=== PATIENT | male | born 1945 | race Caucasian/White ===

== ENCOUNTER → 2018-04-23 | Outpatient (CLI) | payer OTHER | LOC: BMCIMAGING 14:14 | PROVIDERS: ATTEND Family Medicine | DX: I82.592 Chronic embolism and thrombosis of other specified deep vein of left lower extremity (principal) ==

== ENCOUNTER 2018-08-30 10:47 | Emergency (ER) | payer OTHER ==
[2018-08-30 11:28] LABS: PLATELET COUNT 302 10^3/uL (150-400)
--- NOTE | 2018-08-30 11:31 | EDPHY ---
H & P Time Seen by Provider: 08/30/18 11:05 HPI/ROS: Chief complaint. Dizzy, jaw tightness HPI. 73-year-old male presents emergency department with jaw tightness slight dizziness. He was knocking snow off his trees this morning in the began to have some dizziness and felt that if it got worse she could pass out. He has had off and on headache for 1 month. He has had left jaw tightness and left upper chest discomfort previously as well as today. Also today he felt his heart was pounding. However his jaw tightness and chest tightness not worse with exertion previously but maybe associated today. No fever cough. No shortness of breath. ROS 10 systems were reviewed and negative with the exception of the elements mentioned in the history of present illness Past Medical/Surgical History: COPD, spine fusion, inguinal repair No family history of coronary artery disease Social History: , nonsmoker, no alcohol Smoking Status: Former smoker Physical Exam: General Appearance: Alert well-developed male mild distress. Vital signs are stable Eyes: Pupils equal and round no pallor or injection. ENT, Mouth: Mucous membranes are moist. Respiratory: There are no retractions, lungs are clear to auscultation. Cardiovascular: Regular rate and rhythm. Gastrointestinal: Abdomen is soft and nontender, no masses, bowel sounds normal. Neurological: Awake and alert, sensory and motor exams grossly normal. Skin: Warm and dry, no rashes. Musculoskeletal: Neck is supple nontender. Extremities symmetrical, full range of motion. Psychiatric: Patient is oriented X 3, there is no agitation. Constitutional: Initial Vital Signs Temperature (C) 36.9 C 08/30/18 10:52 Heart Rate 66 08/30/18 10:52 Respiratory Rate 16 08/30/18 10:52 Blood Pressure 132/70 H 08/30/18 10:52 O2 Sat (%) 96 08/30/18 10:52 O2 Delivery Mode Room Air Allergies/Adverse Reactions: tetracycline Allergy (Verified 08/30/18 10:51) Home Medications: Medication Instructions Recorded Acetaminophen 08/30/18 Ambien 08/30/18 Aspirin 08/30/18 Dulcolax 08/30/18 Fish Oil 1,000 mg Softgel 08/30/18 Flonase Allergy Relief 08/30/18 Ibuprofen 08/30/18 Ipratropium 0.03% Nasal 08/30/18 Iron 08/30/18 Klonopin 08/30/18 Lansoprazole 08/30/18 Meloxicam 08/30/18 Multivitamin 08/30/18 Ranitidine HCl 08/30/18 Sildenafil Citrate 08/30/18 Tagamet Hb 08/30/18 Tamsulosin HCl 08/30/18 Vitamin B12 08/30/18 Vitamin C 08/30/18 Medical Decision Making - Diagnostics EKG Interpretation: EKG interpreted by me normal sinus rhythm with normal interval. Borderline left axis deviation. QRS is normal. There is no significant ST elevation or depression. No arrhythmia. The rate is 65 Imaging Results: Imaging Impressions Chest X-Ray 08/30/18 11:44 Impression: Stable negative portable chest. One-view chest x-ray interpreted by me is normal Procedures: IV normal saline, monitor ED Course/Re-evaluation: Re-evaluation at 1:10 p.m.. Patient and I discussed imaging lab EKG findings. We discussed treatment plan including recommendation for admission. He continues to have some left upper chest discomfort and jaw pain. Patient would like to be treated as an outpatient. We discussed risks and benefits of this plan. He expresses understanding and agreement. He is encouraged to return at any point for worsening symptoms including lightheadedness, nearly passing out, worsening chest or neck discomfort. He expresses understanding and agreement Differential Diagnosis: I've considered acute coronary syndrome, pneumonia, pneumothorax. - Data Points Laboratory Results: Laboratory Results 08/30/18 11:10 08/30/18 11:10 08/30/18 08/30/18 08/30/18 11:16 11:10 11:10 WBC 6.32 10^3/uL 10^3/uL (3.80-9.50) RBC 4.92 10^6/uL 10^6/uL (4.40-6.38) Hgb 14.5 g/dL g/dL (13.7-17.5) Hct 43.9 % % (40.0-51.0) MCV 89.2 fL fL (81.5-99.8) MCH 29.5 pg pg (27.9-34.1) MCHC 33.0 g/dL g/dL (32.4-36.7) RDW 13.3 % % (11.5-15.2) Plt Count 302 10^3/uL 10^3/uL (150-400) MPV 10.2 fL fL (8.7-11.7) Neut % (Auto) 72.1 % % (39.3-74.2) Lymph % (Auto) 17.1 % % (15.0-45.0) [place] % (Auto) 8.1 % % (4.5-13.0) Eos % (Auto) 1.7 % % (0.6-7.6) Baso % (Auto) 0.8 % % (0.3-1.7) Nucleat RBC Rel Count 0.0 % % (0.0-0.2) Absolute Neuts (auto) 4.56 10^3/uL 10^3/uL (1.70-6.50) Absolute Lymphs (auto) 1.08 10^3/uL 10^3/uL (1.00-3.00) Absolute Monos (auto) 0.51 10^3/uL 10^3/uL (0.30-0.80) Absolute Eos (auto) 0.11 10^3/uL 10^3/uL (0.03-0.40) Absolute Basos (auto) 0.05 10^3/uL 10^3/uL (0.02-0.10) Absolute Nucleated RBC 0.00 10^3/uL 10^3/uL (0-0.01) Immature Gran % 0.2 % % (0.0-1.1) Immature Gran # 0.01 10^3/uL 10^3/uL (0.00-0.10) Sodium 139 mEq/L mEq/L (135-145) Potassium 4.4 mEq/L mEq/L (3.5-5.2) Chloride 102 mEq/L mEq/L (97-110) Carbon Dioxide 28 mEq/l mEq/l (22-31) Anion Gap 9 mEq/L mEq/L (6-14) BUN 19 mg/dL mg/dL (7-23) Creatinine 0.9 mg/dL mg/dL (0.7-1.3) Estimated GFR > 60 Glucose 89 mg/dL mg/dL (70-100) Calcium 9.4 mg/dL mg/dL (8.5-10.4) POC Troponin I 0.00 ng/mL ng/mL (0.00-0.08) Point of Care Test Results: Chemistry 08/30/18 11:16 POC Troponin I 0.00 ng/mL ng/mL (0.00-0.08) Departure - Departure Disposition: Home, Routine, Self-Care Clinical Impression: Chest pain Qualifiers: Chest pain type: unspecified Qualified Code(s): R07.9 - Chest pain, unspecified Condition: Good Instructions: Chest Pain (ED) Additional Instructions: Easy activity next couple days until see cardiology Return for further chest discomfort, trouble breathing, sense of passing out. Call Cardiology today to arrange further evaluation in the next 1-3 days. Referrals: Rodrigo Mack MD [Primary Care Provider] - As per Instructions Manolo Infante MD [Medical Doctor] - 2-3 days without fail
--- NOTE | 2018-08-30 13:07 | CPEKG ---
Test Reason : OPEN Blood Pressure : / mmHG Vent. Rate : 065 BPM Atrial Rate : 065 BPM P-R Int : 167 ms QRS Dur : 087 ms QT Int : 397 ms P-R-T Axes : 049 -25 028 degrees QTc Int : 413 ms Sinus rhythm Borderline left axis deviation Abnormal R-wave progression, early transition Confirmed by Carrie Loyd ([id number]) on 08/30/2018 1:06:57 PM Referred By: CARRIE LOYD Confirmed By:Carrie Loyd
[2018-08-30 13:28] VITALS: BP 109/78
== END 2018-08-30 13:28 | disposition home or self-care (01) ==
DX: R07.9 Chest pain, unspecified (principal); R68.84 Jaw pain
CPT/HCPCS: 84484-ER

== ENCOUNTER 2018-09-07 17:11 | Observation (INO) | payer OTHER ==
[2018-09-07] MEDS ORDERED: ASPIRIN 81 MG CHEWABLE TAB PO ONE (17:22)
--- NOTE | 2018-09-07 17:25 | EDPHY ---
H & P Time Seen by Provider: 09/07/18 17:20 - Medical/Surgical History Hx Asthma: No Hx Chronic Respiratory Disease: No Hx Diabetes: No Hx Cardiac Disease: No Hx Renal Disease: No Hx Cirrhosis: No Hx Alcoholism: No Hx HIV/AIDS: No Hx Splenectomy or Spleen Trauma: No Other PMH: COPD, L4-5 fusion, L3-S1 fusion, RENA inguinal repair, - Social History Smoking Status: Former smoker Constitutional: Initial Vital Signs Temperature (C) 36.6 C 09/07/18 17:23 Heart Rate 66 09/07/18 17:23 Respiratory Rate 18 09/07/18 17:23 Blood Pressure 135/68 H 09/07/18 17:23 O2 Sat (%) 94 09/07/18 17:23 O2 Delivery Mode Room Air Allergies/Adverse Reactions: tetracycline Allergy (Verified 09/07/18 17:23) Home Medications: Medication Instructions Recorded Acetaminophen 08/30/18 Ambien 08/30/18 Aspirin 08/30/18 Dulcolax 08/30/18 Fish Oil 1,000 mg Softgel 08/30/18 Flonase Allergy Relief 08/30/18 Ibuprofen 08/30/18 Ipratropium 0.03% Nasal 08/30/18 Iron 08/30/18 Klonopin 08/30/18 Lansoprazole 08/30/18 Meloxicam 08/30/18 Multivitamin 08/30/18 Ranitidine HCl 08/30/18 Sildenafil Citrate 08/30/18 Tagamet Hb 08/30/18 Tamsulosin HCl 08/30/18 Vitamin B12 08/30/18 Vitamin C 08/30/18 Medical Decision Making ED Course/Re-evaluation: CHIEF COMPLAINT: Abnormal stress test, chest pain HISTORY OF PRESENT ILLNESS: The patient is a 73 y/o male with a history of COPD arriving at the request of a vault service mechanic after he failed a cardiac stress test today. The patient had a treadmill stress test at 14:30, 3 hours ago, at [facility]. This revealed ST depression while at a high work load. After the stress test he developed left-sided neck tightness and minor chest pain. Within the last hour, the neck tightness is now radiating up his cheek. Due to these symptoms and the stress test he was advised to present to the emergency department. No fever, headache, body aches, lightheadedness, heart palpitations, shortness of breath, cough, abdominal pain, urinary or bowel complaints, numbness, paresthesias. In 2013 he had a calcium score of 0 and was also diagnosed with two leaky cardiac valves. REVIEW OF SYSTEMS: A 10 point review of systems was performed and is negative with the exception of the elements mentioned in the history of present illness. PHYSICAL EXAM: HR, BP, O2 Sat, RR. Temp noted General Appearance: Alert, well hydrated, appropriate, and non-toxic appearing. Head: Atraumatic without scalp tenderness or obvious injury Eyes: Pupils equal, round, reactive to light and accommodation, EOMI, no trauma , no injection. Ears: Clear bilaterally, no perforation, normal landmarks Nose: Atraumatic, no rhinorrhea, clear. Throat: There is no erythema or exudates, no lesions, normal tonsils, mucus membranes moist. Neck: Supple, 2+ carotid upstroke, nontender, no lymphadenopathy. Respiratory: No retractions, no distress, no wheezes, and no accessory muscle use. Lungs are clear to auscultation bilaterally. Cardiovascular: Regular rate and rhythm, no murmurs, rubs, or gallops. Bilateral carotid, radial, dorsalis pedis, and posterior tibial pulses intact. Good capillary refill all extremities. Gastrointestinal: Abdomen is soft, nontender, non-distended, no masses, no rebound, no guarding, no peritoneal signs. Musculoskeletal: Normal active ROM of all extremities, atraumatic. Neurological: Alert, appropriate, and interactive. The patient has normal DTRs and non-focal cranial nerves, motor, sensory, and cerebellar exam. Skin: No rashes, good turgor, no nodules on palpation. Past medical history: COPD, leaky heart valves Past surgical history: L4-5 fusion, L3-S1 fusion,bilateral inguinal repair Family history: Denies Social history: at bedside, lives in [place], retired DIAGNOSTICS/PROCEDURES/CRITICAL CARE TIME: EKG: The 12 lead EKG was interpreted by myself as sinus rhythm with a rate of 66 , borderline left axis deviation. See hard copy and/or "tracemaster" electronic copy for interpretation. CT Coronary Angiography: Unable to be performed today. DIFFERENTIAL DIAGNOSIS: The differential diagnosis for the patient's chest pain included but was not limited to myocardial ischemia, pulmonary embolus, chest wall pain, pleural inflammation, and pulmonary infectious causes. MEDICAL DECISION MAKING: The patient is a 73 y/o male with a history of COPD arriving at the request of a vault service mechanic after he failed a cardiac stress test today. The patient had a treadmill stress test at 14:30, 3 hours ago, at [facility]. This revealed ST depression at a high work load. After the stress test he developed left-sided neck tightness (now radiating to his cheek) and minor chest pain. He has a normal physical exam. 324mg PO Aspirin administered. I will page the vault service mechanic to consult on this patient. 1727: I reviewed patient's EKG as sinus rhythm with a rate of 66, borderline left axis deviation. His POC troponin is 0.00 1800: I consulted with Dr. Rivas, vault service mechanic, regarding this patient. CT coronary angiography ordered; 5mg IV Lopressor administered. 1810: Reassessed patient and discussed plan for CT coronary angiography, which he is comfortable with. 1814: I spoke with the r and d lab technician who states he cannot perform the CT coronary angiography. The patient will need to be admitted to have the CT performed tomorrow. 1815: I consulted with Dr. Luque, radiologist, regarding this patient. She accepts admission of this patient. 1818: Reassessed patient and discussed plan for admission which he is comfortable with. - Data Points Laboratory Results: Laboratory Results 09/07/18 17:30 09/07/18 17:30 09/07/18 09/07/18 09/07/18 17:37 17:30 17:30 WBC 7.74 10^3/uL 10^3/uL (3.80-9.50) RBC 4.80 10^6/uL 10^6/uL (4.40-6.38) Hgb 14.2 g/dL g/dL (13.7-17.5) Hct 42.6 % % (40.0-51.0) MCV 88.8 fL fL (81.5-99.8) MCH 29.6 pg pg (27.9-34.1) MCHC 33.3 g/dL g/dL (32.4-36.7) RDW 13.2 % % (11.5-15.2) Plt Count 326 10^3/uL 10^3/uL (150-400) MPV 9.9 fL fL (8.7-11.7) Neut % (Auto) 78.9 % H % (39.3-74.2) Lymph % (Auto) 12.7 % L % (15.0-45.0) [place] % (Auto) 6.5 % % (4.5-13.0) Eos % (Auto) 1.2 % % (0.6-7.6) Baso % (Auto) 0.4 % % (0.3-1.7) Nucleat RBC Rel Count 0.0 % % (0.0-0.2) Absolute Neuts (auto) 6.12 10^3/uL 10^3/uL (1.70-6.50) Absolute Lymphs (auto) 0.98 10^3/uL L 10^3/uL (1.00-3.00) Absolute Monos (auto) 0.50 10^3/uL 10^3/uL (0.30-0.80) Absolute Eos (auto) 0.09 10^3/uL 10^3/uL (0.03-0.40) Absolute Basos (auto) 0.03 10^3/uL 10^3/uL (0.02-0.10) Absolute Nucleated RBC 0.00 10^3/uL 10^3/uL (0-0.01) Immature Gran % 0.3 % % (0.0-1.1) Immature Gran # 0.02 10^3/uL 10^3/uL (0.00-0.10) Sodium 136 mEq/L mEq/L (135-145) Potassium 4.0 mEq/L mEq/L (3.5-5.2) Chloride 100 mEq/L mEq/L (97-110) Carbon Dioxide 27 mEq/l mEq/l (22-31) Anion Gap 9 mEq/L mEq/L (6-14) BUN 18 mg/dL mg/dL (7-23) Creatinine 0.9 mg/dL mg/dL (0.7-1.3) Estimated GFR > 60 Glucose 113 mg/dL H mg/dL (70-100) Calcium 9.4 mg/dL mg/dL (8.5-10.4) POC Troponin I 0.00 ng/mL ng/mL (0.00-0.08) NT-Pro-B Natriuret Pep 48 pg/mL pg/mL (0-125) Medications Given: Discontinued Medications Aspirin (Aspirin) 324 mg PO EDNOW ONE Stop: 09/07/18 17:23 Last Admin: 09/07/18 17:35 Dose: 324 mg Point of Care Test Results: Chemistry 09/07/18 17:37 POC Troponin I 0.00 ng/mL ng/mL (0.00-0.08) Departure - Departure Disposition: [facility] Inpatient Acute Clinical Impression: Abnormal stress test Chest pain Qualifiers: Chest pain type: other chest pain Qualified Code(s): R07.89 - Other chest pain ; R07.8 - Other chest pain Condition: Fair Referrals: Rodrigo Mack MD [Primary Care Provider] - As per Instructions Report Scribed for: Christian Farias Report Scribed by: Ester Dooley Date of Report: 09/07/18 Time of Report: 17:25
[2018-09-07 17:43] LABS: PLATELET COUNT 326 10^3/uL (150-400)
[2018-09-07] MEDS ORDERED: METOPROLOL TARTRATE 5 MG/5 ML INJ IVP ONE (18:07)
[2018-09-07] MEDS ORDERED: NITROGLYCERIN 0.4 MG BTL SL PRN (18:26)
[2018-09-07] MEDS ORDERED: ONDANSETRON DISINTEGRATING 4 MG TAB PO PRN (18:26)
[2018-09-07] MEDS ORDERED: ONDANSETRON 4 MG/2 ML VIAL IVP PRN (18:26)
[2018-09-07] MEDS ORDERED: ACETAMINOPHEN 325 MG TAB PO PRN (18:26)
--- NOTE | 2018-09-07 19:05 | PDGENHP ---
History and Physical - Chief Complaint jaw/face pain following stress test - History of Present Illness 73 yo M with PMH of GERD, BPH and RLS for which he requires chronic benzo's presenting with complaints of jaw, neck and face pain. He was seen in this ER on 08/30 for complaints of left jaw pain and dizziness as well as brief chest pain that were associated with exertion. He had a negative work up in the ER and was discharged with a plan for an outpatient stress test given that he has low risk factors, including a very low calcium score recently. He was scheduled by [facility] for next week, but his symptoms were continuing and therefore he was seen at [facility] where he was able to have the treadmill test performed today. The ECG portion of the stress test was reported as negative, however towards the end of the test patient began to experience jaw, neck and left arm pain that then progressed to involve the entire side of his left face. The jaw and face pain continue while I am speaking with him. He informed [facility] of the symptoms that occurred during his stress and he was recommended to come to the ER and be admitted for further evaluation. He notes he is fairly active and prior to these last episodes has not had pain associated with exertion, though he has at times had dizziness with exertion and at times severe enough that he has had to stop what he was doing. He also reports having recurrent headache particularly above and beside his left eye intermittently for the last several weeks and increased fatigue and grogginess for the last several weeks. He denies any increased stress or anxiety. History Information - Allergies/Home Medication List Allergies/Adverse Reactions: tetracycline Allergy (Verified 09/07/18 17:23) Home Medications: Cyanocobalamin [Vitamin B12 (*)] 1,000 mcg PO DAILY 09/07/18 [Last Taken ] Fluticasone Nasal [Flonase Nasal [place] (RX)] 1 - 2 sprays NASAL DAILY 09/07/18 [ Last Taken 09/07/18] Lansoprazole 30 mg PO BID 09/07/18 [Last Taken 09/07/18 08:00] Meloxicam 15 mg PO DAILY PRN 09/07/18 [Last Taken 09/07/18] Multivitamins [Multivitamin (*)] 1 each PO DAILY 09/07/18 [Last Taken 09/07/18] Tamsulosin HCl [Flomax 0.4 MG (*)] 0.8 mg PO HS 09/07/18 [Last Taken 09/06/18] clonazePAM [Klonopin (*)] 0.25 mg PO HS 09/07/18 [Last Taken 09/06/18] I have personally reviewed and updated: family history, medical history, social history, surgical history - Past Medical History arthritis, GERD Additional medical history: BPH. RLS and chronic benzo use - Surgical History Reports: spinal surgery (x 2) - Family History Additional family history: father w/hx of TIA. MGF with [place] in 60s. Longevity on both sides - Social History Smoking Status: Former smoker (quit at age 36, never heavy smoker) Alcohol Use: Rarely Drug Use: None Additional social history: , retired, active Review of Systems Review of Systems: Physical Exam Physical Exam: Temp Pulse Resp BP Pulse Ox 36.6 C 63 14 108/63 96 09/07/18 17:23 09/07/18 18:07 09/07/18 18:07 09/07/18 18:07 09/07/18 18:07 Constitutional: no apparent distress, appears nourished Eyes: PERRL, anicteric sclera Ears, Nose, Mouth, Throat: moist mucous membranes, hearing normal Cardiovascular: regular rate and rhythym, no murmur, rub, or gallop, No edema Respiratory: no respiratory distress, no rales or rhonchi, clear to auscultation Gastrointestinal: normoactive bowel sounds, soft, non-tender abdomen Genitourinary: no bladder fullness Skin: warm, normal color Musculoskeletal: full muscle strength Neurologic: AAOx3 Psychiatric: interacting appropriately, not anxious, not encephalopathic Lab Data & Imaging Review 09/07/18 17:30 09/07/18 17:30 WBC 7.74 10^3/uL (3.80-9.50) 09/07/18 17:30 RBC 4.80 10^6/uL (4.40-6.38) 09/07/18 17:30 Hgb 14.2 g/dL (13.7-17.5) 09/07/18 17:30 Hct 42.6 % (40.0-51.0) 09/07/18 17:30 MCV 88.8 fL (81.5-99.8) 09/07/18 17:30 MCH 29.6 pg (27.9-34.1) 09/07/18 17: MCHC 33.3 g/dL (32.4-36.7) 09/07/18 17: RDW 13.2 % (11.5-15.2) 09/07/18 17: Plt Count 326 10^3/uL (150-400) 09/07/18 17: MPV 9.9 fL (8.7-11.7) 09/07/18 17: Neut % (Auto) 78.9 % (39.3-74.2) H 09/07/18 17: Lymph % (Auto) 12.7 % (15.0-45.0) L 09/07/18: [place] % (Auto) 6.5 % (4.5-13.0) 09/07/18: Eos % (Auto) 1.2 % (0.6-7.6) 09/07/18: Baso % (Auto) 0.4 % (0.3-1.7) 09/07/18: Nucleat RBC Rel Count 0.0 % (0.0-0.2) 09/07/18: Absolute Neuts (auto) 6.12 10^3/uL (1.70-6.50) 09/07/18 17:30 Absolute Lymphs (auto) 0.98 10^3/uL (1.00-3.00) L 09/07/18: Absolute Monos (auto) 0.50 10^3/uL (0.30-0.80) 09/07/18 17:30 Absolute Eos (auto) 0.09 10^3/uL (0.03-0.40) 09/07/18: Absolute Basos (auto) 0.03 10^3/uL (0.02-0.10) 09/07/18: Absolute Nucleated RBC 0.00 10^3/uL (0-0.01) 09/07/18: Immature Gran % 0.3 % (0.0-1.1) 09/07/18: Immature Gran # 0.02 10^3/uL (0.00-0.10) 05/17/19 17:30 Sodium 136 mEq/L (135-145) 09/07/18 17:30 Potassium 4.0 mEq/L (3.5-5.2) 09/07/18 17:30 Chloride 100 mEq/L (97-110) 09/07/18 17:30 Carbon Dioxide 27 mEq/l (22-31) 09/07/18 17:30 Anion Gap 9 mEq/L (6-14) 09/07/18:30 BUN 18 mg/dL (7-23) 09/07/18 17:30 Creatinine 0.9 mg/dL (0.7-1.3) 09/07/18 17:30 Estimated GFR > 60 09/07/18:30 Glucose 113 mg/dL (70-100) H 09/07/18 17:30 Calcium 9.4 mg/dL (8.5-10.4) 09/07/18 17:30 POC Troponin I 0.00 ng/mL (0.00-0.08) 09/07/18 17:37 NT-Pro-B Natriuret Pep 48 pg/mL (0-125) 09/07/18 17:30 Visualized and Interpreted Chest x-ray results: Yes Chest X-Ray results: normal Visualized and Interpreted EKG results: Yes EKG Interpretation: Positive for: normal sinsus rhythm EKG additional interpertation: abnormal R wave progression Assessment & Plan Assessment: Abnormal stress test (Acute) Chest pain (Acute) 73 yo M with PMH of GERD, BPH and c/o exertional jaw/neck pain and exertional dizziness for the last several weeks presenting following worsening left sided jaw/neck/face pain following exercise stress test today # exertional jaw/neck/arm pain: atypical complaints but persistent now for several weeks, given sxs related to his ETT this was felt to be a failed stress test and cardiology recommended further evaluation in ER. Patient is relatively low risk other than age and male sex, with a reassuring calcium score recently. Plan to monitor on telemetry, serial trops and ecg overnight, nuc med stress test in am so long as no troponin elevation or ecg changes overnight. Patient and his amenable to that plan. Will ask cardiology to evaluate in am as well. # dizziness/near syncope: patient reporting that this has been present for several weeks and largely exertional as well, plan for now as above # face pain/headache: given pain that patient describes as located near his left eye with associated headache and fatigue, will check ESR, if elevated consider further w/u for temporal arteritis # GERD: possibly related to his presenting complaints but does not seem typical for GI type pain, continue lansoprazole # RLS: for which he takes chronic clonazepam, will continue # observation status Patient new to my care. Old records reviewed and summarized as above. Care plan reviewed with ER doctor and further hx obtained from patients as above.
--- NOTE | 2018-09-07 19:30 | CPEKG ---
Test Reason : OPEN Blood Pressure : / mmHG Vent. Rate : 066 BPM Atrial Rate : 066 BPM P-R Int : 162 ms QRS Dur : 096 ms QT Int : 427 ms P-R-T Axes : 054 -25 048 degrees QTc Int : 448 ms Sinus rhythm Borderline left axis deviation Abnormal R-wave progression, early transition Confirmed by Christian Farias ([id number]) on 09/07/2018 7:30:11 PM Referred By: Christian Farias Confirmed By:Christian Farias
[2018-09-07] MEDS ORDERED: clonazePAM 0.5 MG TAB PO SCH ×2 (21:00)
[2018-09-07] MEDS ORDERED: TAMSULOSIN HCL 0.4 MG CAP PO SCH ×2 (21:00)
[2018-09-07] MEDS: LANSOPRAZOLE 30MG CAP PO SCH (21:19)
[2018-09-08] MEDS ORDERED: MULTIVITAMINS 1 EACH TAB PO SCH (09:00)
[2018-09-08] MEDS ORDERED: FLUTICASONE NASAL 120 SPRAYS/16 GM MDI EACHNARE SCH (09:00)
[2018-09-08] MEDS ORDERED: CYANO/VITAMIN B12 1000 MCG TAB PO SCH (09:00)
[2018-09-08] MEDS ORDERED: ASPIRIN 325 MG TAB PO SCH (09:00)
--- NOTE | 2018-09-08 09:37 | ASMTCMCOM ---
CM Note CM Note Notes: Chart reviewed for discharge planning purposes. Patient reported symptoms after stress test at [facility]. He is here for monitoring and follow up. Likely independent at discharge. No current needs identified. CM to follow for needs. Plan: TBD Date Signed: 09/08/2018 09:36 AM Electronically Signed By:Felipa Hilario RN
[2018-09-08] MEDS ORDERED: IOPAMIDOL (ISOVUE-370) 150 ML BTL IV ONE ×2 (11:12→12:18)
[2018-09-08] MEDS ORDERED: NITROGLYCERIN 0.4 MG BTL SL ONE (11:15)
[2018-09-08 11:39] VITALS: BP 111/71
--- NOTE | 2018-09-08 12:13 | GHP ---
[f rep st] HISTORY AND PHYSICAL DATE OF ADMISSION: 09/07/2018 CHIEF COMPLAINT: Jaw pain post exercise stress test. HISTORY OF PRESENT ILLNESS: This is a 73-year-old gentleman with no known history of coronary artery disease or significant risk factors who has been active exercising, skiing throughout the winter and working out. He has had no conclusive cardiac issues. Approximately a month ago with the last snow , while sweeping snow he had some stronger heartbeats and possibly some mild neck discomfort. Howeve r, the neck discomfort seems to be more of a random issue. He was seen by his PCP and needing cardia c clearance for a cataract surgery. For this, he had an exercise stress test which was done at the [facility], which apparently I did not see the reports, but he had good exercise tolerance, no significant ischemic changes. However, in the parking lot he developed some neck and possibly shoul elliot pain, came back into the [facility], was sent to the [facility] ER where he was evaluated. His EKG was normal. His initial enzyme was normal. A CTA was unable to be obtained . He was admitted overnight with negative troponins x2. He is seen today resting comfortably. We have ordered a CT angiography to evaluate his coronaries. The risks and benefits of this procedure were discussed with he and his . In talking to him, he describes possibly some arrhythmias, but no clear-cut syncope. If his CTA has no occlusive coronary disease, he will probably need an outpatient 30 day monitor. Many questions were answered. OUTPATIENT MEDICATIONS: No cardiac medications. ALLERGIES: He has no known allergies. PAST SURGICAL HISTORY: He has had surgeries including spinal surgery. PAST MEDICAL HISTORY: Past history includes some arthritis. REVIEW OF SYSTEMS: Negative for 10 points and no fever, chills, nausea, vomiting, GI, , blood loss . SOCIAL HISTORY: Remote smoking. No issues with alcohol abuse. PHYSICAL EXAM: VITAL SIGNS: Blood pressure 111/71, pulse 80. HEENT: Negative. Moist oropharynx. BACK, CV, CHEST WALL, NECK: Without palpable tenderness. LUNGS: Clear to auscultation. CARDIOVAS CULAR: Regular rate and rhythm without murmur, gallops, rub. ABDOMEN: Soft, nontender. Normoactiv e bowel sounds. No hepatosplenomegaly. MUSCULOSKELETAL: Not showing signs of clubbing or edema. P ulses are 2+ and symmetrical. LABORATORY DATA: He had a white count of 7, hemoglobin 14, potassium 4.0, creatinine 1.9. Troponins negative x2. BNP 48 which was normal. Cholesterol 167 with an LDL 97 and an HDL 57. ASSESSMENT: 1. Jaw pain after an exercise stress test. The patient has been admitted overnight with no evidence of acute ischemia by EKG, ongoing pains, or biomarkers. Today, he feels comfortable. We will obtai n a CTA for further evaluation. If this is nonobstructive, he can be discharged later today to [facility] in our office, where he will need a 30 day monitor to assess for possible arrhythmias given his "harder heart rate." He denies any syncope. Cardiac exam today is within normal limits. Many quest ions answered with he and his . Case discussed with . /[id number]/MODL
[2018-09-08] MEDS ORDERED: IOPAMIDOL (ISOVUE 370) 100 ML BTL IV ONE (12:18)
[2018-09-08] MEDS: LANSOPRAZOLE 30MG CAP PO SCH (14:14)
--- NOTE | 2018-09-08 14:58 | ASMTLACE ---
LACE Length of stay for Answers: Less than 1 day current admission Acuity / Level of Answers: No Care: Did the patient have an inpatient admission? Comorbidities - select Answers: Chronic pulmonary disease all that apply # of Emergency department Answers: 1-2 visits in the last 6 months Score: 3 Date Signed: 09/08/2018 02:57 PM Electronically Signed By:Felipa Hilario RN
--- NOTE | 2018-09-08 15:01 | ASMTDCNOTE ---
Case Management Discharge Discharge Order Complete? Answers: Yes Patient to Obtain Answers: Independently Medications Transportation Arranged Answers: Family/Friends Family Notified Answers: Yes Discharge Comments Notes: Patient medically cleared for discharge to home, no needs identified at this time. CM availble should needs arise. Date Signed: 09/08/2018 03:00 PM Electronically Signed By:Felipa Hilario RN
--- NOTE | 2018-09-08 17:43 | GDS ---
[f rep st] DISCHARGE SUMMARY DISCHARGE DIAGNOSES: 1. Possible positive stress test. 2. Chest pain. 3. Palpitations. HISTORY: The patient is a 73-year-old male who presented with jaw and chest pain. He was getting an outpatient stress test during which he had recurrence of symptoms, and he was sent to the ER. He al so complains of palpitations. He was seen here in consultation by Cardiology. They recommended a CT angiogram of the coronary francesco sridhar. This was completely normal. There is no evidence of even early coronary artery disease. Card iology is recommending outpatient 30-day Holter monitoring for further workup of palpitations. DISCHARGE MEDICATIONS: Please see computerized record for full detailed list. There are no new medi cations given at the time of hospital discharge. ADDITIONAL DISCHARGE INSTRUCTIONS: Outpatient 30-day event monitoring to evaluate palpitations. The patient was seen examined by me on the day of discharge. /[id number]/MODL
== END 2018-09-08 15:56 | disposition home or self-care (01) ==
LOC: F2W 19:05
PROVIDERS: ADMIT Internal Medicine; ATTEND Internal Medicine
DX: R07.9 Chest pain, unspecified (principal); R00.2 Palpitations; K21.9 Gastro-esophageal reflux disease without esophagitis; N40.0 Benign prostatic hyperplasia without lower urinary tract symptoms; G25.81 Restless legs syndrome; J44.9 Chronic obstructive pulmonary disease, unspecified; Z98.1 Arthrodesis status; Z87.891 Personal history of nicotine dependence
CPT/HCPCS: 71046; 75574; 93005; 99285; G0378; Q9967; 84484-ER